=== PATIENT | male | born 1955 | race Caucasian/White ===

== ENCOUNTER 2020-07-20 14:02 | Outpatient (CLI) | payer OTHER, SELFPAY | END 2020-07-20 14:03 | disposition home or self-care (01) | LOC: WOUND 14:09 | PROVIDERS: Family Provider Nurse Practitioner; PCP Nurse Practitioner; Visit Provider Thoracic Surgery (Cardiothoracic Vascular Surgery) | DX: L97.522 Non-pressure chronic ulcer of other part of left foot with fat layer exposed (principal) | CPT/HCPCS: 97597; 99215 ==

== ENCOUNTER 2020-07-27 13:20 | Outpatient (CLI) | payer OTHER, SELFPAY | END 2020-07-27 13:21 | disposition home or self-care (01) | LOC: WOUND 13:20 | PROVIDERS: Family Provider Nurse Practitioner; PCP Nurse Practitioner; Visit Provider Nurse Practitioner Family | DX: E11.621 Type 2 diabetes mellitus with foot ulcer (principal); L97.522 Non-pressure chronic ulcer of other part of left foot with fat layer exposed; L97.512 Non-pressure chronic ulcer of other part of right foot with fat layer exposed | CPT/HCPCS: 99214 ==

== ENCOUNTER 2020-08-03 10:54 | Outpatient (CLI) | payer OTHER, SELFPAY | END 2020-08-03 10:55 | disposition home or self-care (01) | LOC: WOUND 10:54 | PROVIDERS: Family Provider Nurse Practitioner; PCP Nurse Practitioner; Visit Provider Thoracic Surgery (Cardiothoracic Vascular Surgery) | DX: E11.621 Type 2 diabetes mellitus with foot ulcer (principal); L97.521 Non-pressure chronic ulcer of other part of left foot limited to breakdown of skin; L97.511 Non-pressure chronic ulcer of other part of right foot limited to breakdown of skin | CPT/HCPCS: 97597 ==

== ENCOUNTER 2020-08-10 10:45 | Outpatient (CLI) | payer OTHER, SELFPAY | END 2020-08-10 10:46 | disposition home or self-care (01) | LOC: WOUND 10:45 | PROVIDERS: Family Provider Nurse Practitioner; PCP Nurse Practitioner; Visit Provider Thoracic Surgery (Cardiothoracic Vascular Surgery) | DX: Z09 Encounter for follow-up examination after completed treatment for conditions other than malignant neoplasm (principal) | CPT/HCPCS: 99212 ==

== ENCOUNTER 2020-08-16 15:07 | Outpatient (CLI) | payer OTHER, SELFPAY | END 2020-08-16 15:08 | disposition home or self-care (01) | LOC: WOUND 15:08 | PROVIDERS: Family Provider Nurse Practitioner; PCP Nurse Practitioner; Visit Provider Thoracic Surgery (Cardiothoracic Vascular Surgery) | DX: E11.621 Type 2 diabetes mellitus with foot ulcer (principal); L97.522 Non-pressure chronic ulcer of other part of left foot with fat layer exposed | CPT/HCPCS: 99212 ==

== ENCOUNTER 2020-08-23 14:37 | Outpatient (CLI) | payer OTHER, SELFPAY | END 2020-08-23 14:38 | disposition home or self-care (01) | LOC: WOUND 14:38 | PROVIDERS: Family Provider Nurse Practitioner; PCP Nurse Practitioner; Visit Provider Nurse Practitioner Family | DX: L97.522 Non-pressure chronic ulcer of other part of left foot with fat layer exposed (principal) | CPT/HCPCS: G0463 ==

== ENCOUNTER 2020-08-30 14:17 | Outpatient (CLI) | payer OTHER, SELFPAY | END 2020-08-30 14:18 | disposition home or self-care (01) | LOC: WOUND 14:18 | PROVIDERS: Family Provider Nurse Practitioner; PCP Nurse Practitioner; Visit Provider Nurse Practitioner Family | DX: Z09 Encounter for follow-up examination after completed treatment for conditions other than malignant neoplasm (principal) | CPT/HCPCS: 99212 ==